=== PATIENT | female | born 1975 | race Caucasian/White ===

== ENCOUNTER 2017-07-23 14:01 | Emergency (ER) | payer OTHER ==
[~2017-07-23] VITALS: Ht 160 cm; Wt 57.5 kg
[~2017-07-23 14:01] MED LIST: ABILIFY30 MG; ALPRAZOLAM ER2 MG; ALPRAZOLAM1 MG; AMOXICILLIN875 MG PO; BUSPAR30 MG; NO HOME MEDS; ZOLPIDEM TARTRA10 MG
[2017-07-23] MEDS ORDERED: CLONAZEPAM0.5 MG PO (14:30)
[2017-07-23] MEDS ORDERED: WELLBUTRIN XL150 MG PO (14:31)
[2017-07-23] MEDS ORDERED: BUPRENORPHINE HC8 MG SL (14:31)
[2017-07-23] MEDS ORDERED: ATARAX,VISTARIL50 MG PO (14:32)
[2017-07-23] MEDS ORDERED: TRAZODONE HCL50 MG PO (14:33)
[2017-07-23 15:38] LABS: BASOPHIL COUNT 0.1 K/uL (0-0.1); EOSINOPHIL (%) 2.3 % (0-5); EOSINOPHIL COUNT 0.1 K/uL (0-0.3); IMMATURE GRANULOCYTE (%) 0.2 % (0.0-0.7); INSTRUMENT ABS NEUTROPHIL CT 3.7 K/uL; LYMPHOCYTE COUNT 1.9 K/uL (1.0-2.8); MCH 32.6 PG (29.0-34.0); MCHC 33.6 G/DL (30.0-36.0); MEAN PLAT.VOLUME 9.6 uM^3 (9.5-12.4); MONOCYTE (%) 6.3 % (3-12); MONOCYTE COUNT 0.4 K/uL (0-0.8); NEUTROPHIL (%) 59.4 % (45-76); NEUTROPHIL COUNT 3.7 K/uL (1.8-6.4); PLATELET COUNT 277 K/uL (156-360); RBC DIS.WIDTH-CV 13.7 % (11.8-14.6); RBC DIS.WIDTH-SD 49.1 % (39-53); RED BLOOD COUNT 4.33 M/uL (3.80-5.20); WHITE BLOOD COUNT 6.2 K/uL (4.1-10.2)
[2017-07-23 15:46] LABS: CHLORIDE 104 mEq/L (99-109); POTASSIUM 4.7 mEq/L (3.7-5.4); SODIUM 139 mEq/L (136-147)
[2017-07-23 15:48] LABS: GLUCOSE 107 mg/dL (70-99)
[2017-07-23 15:49] LABS: ADD MIUA? NO; BILIRUBIN NEGATIVE; BLOOD NEGATIVE; COLOR YELLOW ((YELLOW)); GLUCOSE (STRIP) NEGATIVE; KETONES NEGATIVE; LEUKOCYTES NEGATIVE; NITRITE NEGATIVE; PROTEIN (STRIP) NEGATIVE; SPECIFIC GRAVITY 1.004 (1.000-1.030); UROBILINOGEN 0.2 MG/DL (0.2-1.0)
[2017-07-23 15:49] LABS: ANION GAP 11 MEQ/L (2-14)
[2017-07-23 15:50] LABS: TOTAL BILIRUBIN 0.2 mg/dL (0.0-1.0)
[2017-07-23 15:51] LABS: SERUM ETHYL ALCOHOL < 10 mg/dL
[2017-07-23 15:52] LABS: GFR ESTIMATE (CALCULATED) > 59 mL/min/
[2017-07-23 15:53] LABS: ALKALINE PHOSPHATASE 78 IU/L (3-129)
[2017-07-23 15:54] LABS: DIRECT BILIRUBIN 0.1 mg/dL (0.0-0.3); UREA NITROGEN (BUN) 5 mg/dL (9-23)
[2017-07-23 15:55] LABS: SALICYLATE < 5.0 MG/DL (15-30)
[2017-07-23 15:58] LABS: AMPHETAMINE NEGATIVE (500 ng/mL); BARBITURATES NEGATIVE (200 ng/mL); BENZODIAZEPINES NEGATIVE (150 ng/mL); COCAINE NEGATIVE (150 ng/mL); INTERNAL CONTROLS VALID? YES; METHADONE NEGATIVE (200 ng/mL); METHAMPHETAMINE NEGATIVE (500 ng/mL); OPIATES (MORPHINE) NEGATIVE (100 ng/mL); OXYCODONE NEGATIVE (100 ng/mL); PHENCYCLIDINE NEGATIVE (25 ng/mL); PROPOXYPHENE NEGATIVE (300 ng/mL); THC CANNABINOIDS NEGATIVE (50 ng/mL); TRICYCLIC ANTIDEPRESSANTS NEGATIVE (300 ng/mL)
[2017-07-23 16:02] LABS: QUANTITATIVE HCG < 4.0 MIU/ML
[2017-07-23] MEDS ORDERED: ATARAX,VISTARIL25 MG PO (16:43)
[2017-07-23 17:11] VITALS: BP 141/86
== END 2017-07-23 17:11 | disposition home or self-care (01) ==
LOC: EME 14:01
PROVIDERS: Emergency Medicine
DX: F41.0 Panic disorder [episodic paroxysmal anxiety] (principal); F17.200 Nicotine dependence, unspecified, uncomplicated
CPT/HCPCS: 80048; 80076; 81003; 84702; 85025; 90832; 99281; 99284; G0480